=== PATIENT | female | born 1995 | race Caucasian/White ===

== ENCOUNTER → 2017-12-07 17:24 | Outpatient (CLI) | payer OTHER, SELFPAY ==
[2017-12-07 19:46] LABS: Chlamydia Trachomatis by PCR Negative (Negative); Neisserai gonorrhoeae by PCR Negative (Negative); Probe Check PASS; Sample Adequacy Control PASS; Specimen Processing Control PASS
== END ==
PROVIDERS: Family Provider Pediatrics; PCP Pediatrics; Visit Provider Nurse Practitioner Women's Health
DX: Z11.3 Encounter for screening for infections with a predominantly sexual mode of transmission (principal)
CPT/HCPCS: 87491; 87591

== ENCOUNTER → 2019-02-10 14:39 | Outpatient (CLI) | payer OTHER, SELFPAY ==
[2019-02-10 08:43] VITALS: BMI 25.7
[2019-02-10 16:45] LABS: Chlamydia Trachomatis by PCR POSITIVE (Negative); Neisserai gonorrhoeae by PCR Negative (Negative)
[2019-02-10 16:46] LABS: Probe Check PASS
[2019-02-16 09:38] LABS: HPV Reflexed? NOT INDICATED
== END ==
PROVIDERS: Family Provider Pediatrics; PCP Pediatrics; Referring Provider Nurse Practitioner Women's Health; Visit Provider Nurse Practitioner Women's Health
DX: Z12.4 Encounter for screening for malignant neoplasm of cervix (principal); Z11.3 Encounter for screening for infections with a predominantly sexual mode of transmission
CPT/HCPCS: 87491; 87591; 87624; 88175; G0145

== ENCOUNTER → 2020-02-21 17:07 | Outpatient (CLI) | payer OTHER, SELFPAY ==
[2020-02-21 10:43] VITALS: BMI 25.7
[2020-02-21 21:25] LABS: Chlamydia Trachomatis by PCR Negative (Negative); Neisserai gonorrhoeae by PCR Negative (Negative); Probe Check PASS; Sample Adequacy Control PASS; Specimen Processing Control PASS
== END ==
PROVIDERS: PCP Pediatrics; Referring Provider Nurse Practitioner Women's Health; Visit Provider Nurse Practitioner Women's Health
DX: Z11.3 Encounter for screening for infections with a predominantly sexual mode of transmission (principal)
CPT/HCPCS: 87491; 87591

== ENCOUNTER → 2021-02-28 | Outpatient (CLI) | payer OTHER, SELFPAY ==
[2021-02-28 08:49] VITALS: BMI 23.9
[2021-03-03 07:06] LABS: Chlamydia By Nucleic Acid AMP Negative (Negative)
[2021-03-03 07:40] LABS: Gonococcus By Nucleic Acid AMP Negative (Negative)
== END | disposition home or self-care (01) ==
LOC: LABSPEC 12:12
PROVIDERS: Visit Provider Nurse Practitioner Women's Health
DX: Z11.3 Encounter for screening for infections with a predominantly sexual mode of transmission (principal)
CPT/HCPCS: 87491; 87591

== ENCOUNTER → 2022-02-25 | Outpatient (CLI) | payer OTHER, SELFPAY ==
[2022-03-03 17:29] LABS: HPV Reflexed? NOT INDICATED
== END | disposition home or self-care (01) ==
LOC: LABSPEC 02-27 13:35
PROVIDERS: PCP Internal Medicine; Visit Provider Nurse Practitioner Women's Health
DX: Z12.4 Encounter for screening for malignant neoplasm of cervix (principal)
CPT/HCPCS: 88175; G0145

== ENCOUNTER → 2024-04-28 | Outpatient (CLI) | payer OTHER, SELFPAY ==
[2024-05-02 21:07] LABS: Chlamydia By Nucleic Acid AMP Negative (Negative); Gonococcus By Nucleic Acid AMP Negative (Negative)
== END | disposition home or self-care (01) ==
PROVIDERS: PCP Internal Medicine; Referring Provider Obstetrics & Gynecology; Visit Provider Obstetrics & Gynecology
DX: Z34.00 Encounter for supervision of normal first pregnancy, unspecified trimester (principal)
CPT/HCPCS: 87086; 87491; 87591

== ENCOUNTER → 2024-05-04 | Outpatient (CLI) | payer OTHER, SELFPAY ==
[2024-05-04 16:08] LABS: Absolute Lymphocyte Count 2.34 X10^3/uL (0.83-4.51); Absolute Neutrophil Count 4.3 X10^3/uL (2.0-7.7); Basophil# 0.02 X10^3/uL; Basophil% 0.3 % (0-1); Eosinophils% 2.8 % (0-5); Hematocrit 37.7 % (37-47); Hemoglobin 12.7 g/dL (12.0-15.0); Lymphocyte # 2.34 X10^3/ul (0.83-4.51); Lymphocyte % 32.5 % (19-41); Mean Corp Hgb Conc 33.7 g/dL (32-36); Mean Corpuscular Hgb 30.9 pg (27.0-32.0); Mean Corpuscular Volume 91.7 fL (81-99); Mean Platelet Vol. 11.6 fl (6.2-12.0); Monocyte# 0.32 X10^3/uL; Monocyte% 4.4 % (0-10); NRBC Flagged by Analyzer 0 % (0-5); Neutrophil % 59.7 % (47-70); Platelet Count 185 K/mm3 (150-450); Red Blood Count 4.11 M/mm3 (4.2-5.4); White Blood Count 7.2 K/mm3 (4.4-11.0)
[2024-05-04 17:55] LABS: HIV - WCH Non-Reactive (Nonreactive); Hepatitis B Surface Antigen Non-Reactive (Nonreactive); Hepatitis C Antibody Non-Reactive (Nonreactive); Rubella IgG Equiv (Nonreactive); Syphilis Antibodies Non-reactive
== END | disposition home or self-care (01) ==
LOC: WOBLAB 15:35
PROVIDERS: PCP Internal Medicine; Referring Provider Obstetrics & Gynecology; Visit Provider Obstetrics & Gynecology
DX: Z34.01 Encounter for supervision of normal first pregnancy, first trimester (principal); Z31.430 Encounter of female for testing for genetic disease carrier status for procreative management
CPT/HCPCS: 85025; 86703; 86762; 86780; 86803; 86850; 86900; 86901; 87340

== ENCOUNTER → 2024-08-15 | Outpatient (CLI) | payer OTHER, SELFPAY ==
[2024-08-15 16:35] LABS: Absolute Lymphocyte Count 2.34 X10^3/uL (0.83-4.51); Absolute Neutrophil Count 7.8 X10^3/uL (2.0-7.7); Basophil# 0.05 X10^3/uL; Basophil% 0.5 % (0-1); Eosinophils% 1.8 % (0-5); Hematocrit 36.3 % (37-47); Hemoglobin 11.9 g/dL (12.0-15.0); Lymphocyte # 2.34 X10^3/ul (0.83-4.51); Lymphocyte % 21.2 % (19-41); Mean Corp Hgb Conc 32.8 g/dL (32-36); Mean Corpuscular Hgb 31.8 pg (27.0-32.0); Mean Corpuscular Volume 97.1 fL (81-99); Mean Platelet Vol. 12.6 fl (6.2-12.0); Monocyte# 0.59 X10^3/uL; Monocyte% 5.3 % (0-10); NRBC Flagged by Analyzer 0 % (0-5); Neutrophil % 70.7 % (47-70); Platelet Count 174 K/mm3 (150-450); RBC Distribution Width CV 12.7 % (11.6-14.6); RBC Distribution Width SD 44.8 fl (35.1-43.9); Red Blood Count 3.74 M/mm3 (4.2-5.4)
[2024-08-15 16:45] LABS: Glucose Challenge Gest 1H 50g 101 mg/dL (70-140)
[2024-08-15 17:21] LABS: HIV - WCH Non-Reactive (Nonreactive); Syphilis Antibodies Non-reactive
== END | disposition home or self-care (01) ==
LOC: BWCLAB 15:03
PROVIDERS: PCP Internal Medicine; Referring Provider Advanced Practice Midwife; Visit Provider Advanced Practice Midwife
DX: Z34.02 Encounter for supervision of normal first pregnancy, second trimester (principal)
CPT/HCPCS: 36415; 82950; 85025; 86703; 86780

== ENCOUNTER → 2024-10-28 | Outpatient (CLI) | payer OTHER, SELFPAY | END | disposition home or self-care (01) | LOC: LABSPEC 16:09 | PROVIDERS: PCP Internal Medicine; Referring Provider Advanced Practice Midwife; Visit Provider Advanced Practice Midwife | DX: Z34.02 Encounter for supervision of normal first pregnancy, second trimester (principal) | CPT/HCPCS: 87081 ==

== ENCOUNTER 2024-11-26 09:56 | Inpatient (IN) | payer OTHER, SELFPAY ==
[2024-11-26] VITALS (19 sets, daily range): BP systolic 103–165; BP diastolic 57–140; PULSE 73–171; RESP 13–20; TEMP 36.2–37.2; O2SAT 81–100; BMI 29.7
--- NOTE | 2024-11-26 10:45 | HP.PCM.OB_ITS ---
HPI - General General Date of Admission: 11/26/24 Date of Service: 11/26/24 HPI Narrative KAI MERCHANT, is a 29 F 40.4 weeks who presents for uterine contractions. occasional variable noted. decision made for induction Maternal Data Information LYNDA Calculator Estimated Delivery Date Method Current WG Current Estimate 11/22/24 LMP (Certain) 40w 4d Other Estimates 11/29/24 Ultrasound #1 39w 4d Final LYNDA: 11/22/24 Final LYNDA Source: US >20 weeks Gestational age: 40.4 PFSH PFSH Medical History Seasonal allergies Genital warts History of chlamydia Home Medications ?Medication ?Instructions ?Recorded ?Last Taken ?Type lactobacillus combination no.4 3 3,000 mmu cells PO DA NUPUR 03/04/24 11/25/24 His tory billion cell capsule (Probiotic) multivit-min no.71-iron fum 28 1 cap PO DAILY Pregnanc y 04/22/24 11/25/24 History mg-folate no.1 1 mg-dha 300 mg capsule (PNV-[place]) Allergy/AdvReac Type Severity Reaction Status Date / Time No Known Allergies Allergy Verified 11/22/24 15:12 Family History Grandmother Breast cancer, Onset Age: 70 Maternal Great Grandmother Surgical History [place] teeth extracted Social History adopted: No household members: spouse current occupational status: employed current occupation: [employer] current occupational exposures/hazards: No pets and animals: Yes pets and animals: dog(s) history of recent travel: Yes ( -December) out of country: Yes sexually active: Yes Smoking Status: Never smoker alcohol intake: current alcohol intake frequency: holidays/special occasions only details: Not while substance use type: does not use well-balanced diet: daily or most days caffeine: No eating out: rarely or never during the past year weight has: remained stable what type of physical activity do you participate in: other details: crossfit frequency: 3-4 times per week duration: 45-60 minutes/day july/buddhism: [employer] seatbelt use: always do you feel safe at home: Yes additional social history: - Khushi Merchant [employer] [place] Financial History 1 Elective abortions Hx Para 0 Spontaneous abortions Hx # Term Pregnancies Ectopic pregnancies Hx # Pregnancies Multiple births # of living children 0 Visit Details Expected Delivery Route/Plan 7svd Labor Preferences- CB/BF classes: encouraged labor support person: Khushi labor intervention preferences: [] pain management options preferred: Limited intervention if possible cut cord/dad catch: cord : yes PP control planned: disccussed discussed possible routes of delivery and associated risks: [] special requests: [] Plans Covid status: [] Flu vaccine: declines Tdap vaccine: [] Rhogam: NA LARC form signed: yes Problem list reviewed and updated with the most current plan of care details and appropriate orders placed. Relevant counseling for the gestational age provided. Continue routine care and follow up unless otherwise noted in visit notes/problem list details OB Flowsheet Initial Weight: Not Recorded Date -?-?-?-?-?-?-?-?-?-?-?-?- EGA Weight BP Urine Prot -?-?-?-?-?-?-?-?-?-?-?-?- Glucose FHR FuHt Pres Dilation -?-?-?-?-?-?-?-?-?-?-?-?- Effaced St Visit Note 05/26/24 -?-?-?-?-?-?-?-?-?-?-?-?- 14w 2d 139 lb 117/80 -?-?-?-?-?-?-?-?-?-?-?-?- 150 -?-?-?-?-?-?-?-?-?-?-?-?- SM- no vb crmapi ng 06/21/24 -?-?-?-?-?-?-?-?-?-?-?-?- 18w 0d 146 lb 4 oz 106/72 Nega tive -?-?-?-?-?-?-?-?-?-?-?-?- Negative 152 -?-?-?-?-?-?-?-?-?-?-?-?- MH-No VB, LOF. N o flutters yet. Denies concerns. anatomy US next week 07/18/24 -?-?-?-?-?-?-?-?-?-?-?-?- 21w 6d 153 lb 106/78 Negative -?-?-?-?-?-?-?-?-?-?-?-?- Negative 140 22 -?-?-?-?-?-?-?-?-?-?-?-?- KW- no vb/crampi ng. good fm. anatomy nl. 08/15/24 -?-?-?-?-?-?-?-?-?-?-?-?- 25w 6d 157 lb 2 oz 116/78 Nega tive -?-?--?-?-?-?-?-?-?-?-?-?- Negative 146 26 -?-?-?-?-?-?-?-?-?-?-?-?- MH-No vB, LOF. G ood FM. Larc. 28 wk labs pending. 09/12/24 -?-?-?-?-?-?-?-?-?-?-?-?- 29w 6d 161 lb 119/77 Negative -?-?-?-?-?-?-?-?-?-?-?-?- Negative 135 30 -?-?-?-?-?-?-?-?-?-?-?-?- KW-no vb/lof/ctx good fm. edu classes scheduled. KW-no vb/lof/ctx good fm. ed u classes scheduled. declines tdap. 09/27/24 -?-?-?-?-?-?-?-?-?-?-?-?- 32w 0d 162 lb 8 oz 109/76 Nega tive -?-?-?-?-?-?-?-?-?-?-?-?- Negative 142 32 -?-?-?-?-?-?-?-?-?-?-?-?- JV- no lof, vagi nal bleeding, or dec fm. no complaints. 10/14/24 -?-?-?-?-?-?-?-?-?-?-?-?- 34w 3d 166 lb 108/76 Negative -?-?-?-?-?-?-?-?-?-?-?-?- Negative 140 34 -?-?-?-?-?-?-?-?-?-?-?-?- KW-work in for L C, no vb/lof/ctx. good fm. GBS next visit. 10/28/24 -?-?-?-?-?-?-?-?-?-?-?-?- 36w 3d 168 lb 2 oz 115/74 Nega tive -?-?-?-?-?-?-?-?-?-?-?-?- Negative 130 36 Cephalic 0 -?-?-?-?-?-?-?-?-?-?-?-?- KW- no vb/lof/ct x. good fm GBS today. reviewed plan. KW- no vb/lof/ctx. good fm G BS today. reviewed plan. handout given on hand expression 11/04/24 -?-?-?-?-?-?-?-?-?-?-?-?- 37w 3d 170 lb 2 oz 118/78 Nega tive -?-?-?-?-?-?-?-?-?-?-?-?- Negative 132 36.5 Cephalic 0 -?-?-?-?-?-?-?-?-?-?-?-?- JV- no lof, vagi nal bleeding or dec fm. labor precautions discussed. 11/11/24 -?-?-?-?-?-?-?-?-?-?-?-?- 38w 3d 172 lb 2 oz 115/79 Nega tive -?--?-?-?-?-?-?-?-?-?-?-?- Negative 145 37 Cephalic 1 -?-?-?-?-?-?-?-?-?-?-?-?- SM- no vb lof go od fm no regular ctx 11/18/24 -?-?-?-?-?-?-?-?-?-?-?-?- 39w 3d 171 lb 114/83 Negative -?-?-?-?-?-?-?-?-?-?-?-?- Negative 140 38 Cephalic 0 .5 -?-?-?-?-?-?-?-?-?-?-?-?- 40 -3 LC- no vb/ ctx/lof. good fm. 11/22/24 -?-?-?-?-?-?-?-?-?-?-?-?- 40w 0d 173 lb 124/68 Negative -?-?-?-?-?-?-?-?-?-?-?-?- Negative 140 40 Cephalic 1 -?-?-?-?-?-?-?-?-?--?-?-?- 50 -2 KW- no vb/ lof/ctx. good fm. IOL set up for 41 weeks. NST FHR Rate Baby A Baseline: 135 Variability:: Moderate Accelerations:: 15 x 15 Decelerations:: Variable NST Reactive:: Yes FHR Category:: Category I Uterine Activity:: 6-8 ROS Constitutional Constitutional: Denies change in weight, fatigue, fever(s), headache(s), poor appetite or weakness Eyes Eyes: Denies blurry vision, change in vision, floaters, seeing flashes or spots in vision ENT HEENT: Denies dizziness, headache(s), loss taste/smell or sore throat Cardiovascular Cardiovascular: Denies chest pain, dizziness, dyspnea, irregular heart rhythm, lightheadedness, palpitations or rapid heart rate Respiratory/Chest Respiratory/Chest: Denies change in mental status, chest tightness, cough, dyspnea or breast pain Gastrointestinal Gastrointestinal: Denies anorexia, chewing difficulty, constipation, diarrhea or weight changes Genitourinary Genitourinary: Denies difficulty urinating, dysuria, flank pain, genital pain, urinary frequency or urinary urgency Musculoskeletal Musculoskeletal: Denies back pain, difficulty walking, extremity pain, joint pain, muscle cramps or muscle weakness Integumentary Integumentary: Denies lesions or unusual bruising Neurologic Neurologic: Denies abnormal movements, abnormal speech, dizziness, numbness, seizure-like activity, syncope or weakness Psychiatric Psychiatric: Denies behavioral changes, change in appetite, confusion, depression, homicidal ideation, suicidal ideation or suicidal thoughts Endocrine Endocrinology: Denies excessive sweating, polydipsia or polyuria Hematologic/Lymphatic Hematologic/Lymphatic: Denies anemia Allergic/Immunologic Allergic/Immunologic: Denies itchy eyes, lip swelling, throat swelling, tongue swelling or wheezing Vital Signs Vital Signs Vital Signs: 11/26/24 07:43 11/26/24 07:43 11/26/24 07:43 Temperature Temperature Source Temporal Pulse Rate 94 Respiratory Rate 16 Blood Pressure BP Systolic BP Diastolic Pulse Ox 11/26/24 07:43 11/26/24 07:43 11/26/24 07:44 Temperature 99.0 F Temperature Source Pulse Rate Respiratory Rate Blood Pressure 115/86 H BP Systolic 115 BP Diastolic 86 Pulse Ox 98 11/26/24 07:44 Temperature Temperature Source Pulse Rate 96 Respiratory Rate Blood Pressure BP Systolic BP Diastolic Pulse Ox Weight Weight: 173 lb 6.4 oz Body Mass Index (BMI) 29.7 Physical Exam Const alert, oriented x3 and no apparent distress General Appearance: cooperative Orientation / Consciousness: awake HEENT normocephalic Neck full ROM Lymph Lymphatic: no lymphadenopathy noted Chest inspection of chest normal Resp normal respiratory effort and normal air movement Effort and Inspection: able to speak in complete sentences and symmetric chest movement GI soft to palpation and non-tender Inspection: gravid Palpation: soft; Negative for tender external exam normal Back/Spine normal to inspection Extremity normal to inspection and full ROM Skin no rashes or lesions noted Psych mental status grossly normal Appearance: grossly normal Speech: normal speech Labs Labs Labs: Blood Type O POSITIVE Antibody Screen NEGATIVE Hct 36.3 % (37-47) L Hgb 11.9 g/dL (12.0-15.0) L Syphilis Total Ab Non-reactive Rubella IgG Antibody Equiv (Nonreactive) Hep Bs Antigen Non-Reactive (Nonreactive) Hepatitis C Antibody Non-Reactive (Nonreactive) Chlamydia DNA ([facility]) Negative (Negative) N.gonorrhoeae DNA ([facility]) Negative (Negative) HIV 1&2 Antibody Non-Reactive (Nonreactive) Glucose 1 Hr 50 gm 101 mg/dL (70-140) Assessment & Plan (1) Encounter for induction of labor: PLAN: Patient presents IOL, plan management for with zimmer/pitocin/AROM. Pain management: plans epidural. GBS negative. Management of any complications: see list I have reviewed the [facility] and made any clinically relevant updates. Dr Goff aware of assessment and plan. agrees with admission (2) Rubella non-immune status, antepartum: COMMENT: equivocal. offer MMR vaccine pp. (3) Supervision of normal first : QUALIFIERS: Trimester: second trimester Qualified Code(s): Z34.02 - Encounter for supervision of normal first , second trimester COMMENT: PRR , LYNDA 11/22/24, boy Trace Khushi. Normal anatomy, consistent dates. (4) : QUALIFIERS: Weeks of gestation: 40 weeks Qualified Code(s): Z3A.40 - 40 weeks gestation of COMMENT: GBS neg, NIPT low risk, carrier neg. , declined ntd screen. nl anatomy Charges/Coding Multi Select Codes Urinary/Genital Urinary/Genital CPT Codes: No Charge
[2024-11-26 10:46] LABS: Absolute Lymphocyte Count 2.08 X10^3/uL (0.83-4.51); Absolute Neutrophil Count 8.3 X10^3/uL (2.0-7.7); Basophil# 0.02 X10^3/uL; Basophil% 0.2 % (0-1); Eosinophil# 0.05 X10^3/uL; Eosinophils% 0.5 % (0-5); Hematocrit 35.6 % (37-47); Lymphocyte # 2.08 X10^3/ul (0.83-4.51); Mean Corp Hgb Conc 33.7 g/dL (32-36); Mean Corpuscular Hgb 31.4 pg (27.0-32.0); Mean Corpuscular Volume 93.2 fL (81-99); Mean Platelet Vol. 13.4 fl (6.2-12.0); Monocyte% 4.6 % (0-10); NRBC Flagged by Analyzer 0 % (0-5); Neutrophil # 8.25 X10^3/uL (2.7-7.7); Neutrophil % 75.2 % (47-70); Platelet Count 146 K/mm3 (150-450); RBC Distribution Width CV 13.9 % (11.6-14.6); RBC Distribution Width SD 47.4 fl (35.1-43.9); Red Blood Count 3.82 M/mm3 (4.2-5.4)
[2024-11-26] MEDS: 0.9% Saline Lock 10 ML Syringe IV ×2 (11:04→15:38)
[2024-11-26] MEDS: Lactated Ringers 1,000 ML 50 ML IV (11:05)
[2024-11-26] MEDS: Oxytocin 15 Units/NS 250ml 15 UNITS/250 ML IV.SOLN 2 UNITS IV (11:38)
[2024-11-26 11:50] LABS: Syphilis Antibodies Nonreactive (Nonreactive)
[2024-11-26] MEDS: Ondansetron 4 MG/2 ML Vial IV (15:37)
--- NOTE | 2024-11-26 17:53 | PCM.PN.BLA ---
Progress Note Coping well with contractions current tracing: FHT: 140 Moderate variability reactive no decelerations category I tracing [place]: 2-3 minutes Contractions Membranes:AROM clear SVE:6/80/-1 pitocin at 2mu A/P: Continue with position changes Titrate pitocin per protocol Epidural per anesthesia GBS neg Anticipate Dr Goff aware of above assessment and agrees with plan of care Assessment & Plan Assessment/Plan (1) Encounter for induction of labor: (2) Rubella non-immune status, antepartum: (3) Supervision of normal first : QUALIFIERS: Trimester: second trimester Qualified Code(s): Z34.02 - Encounter for supervision of normal first , second trimester (4) : QUALIFIERS: Weeks of gestation: 40 weeks Qualified Code(s): Z3A.40 - 40 weeks gestation of Multi Select Codes Urinary/Genital Urinary/Genital CPT Codes: No Charge
--- NOTE | 2024-11-26 19:09 | PCM.PN.BLA ---
Progress Note Coping well with contractions current tracing: FHT: 140 Moderate variability reactive prolonged deceleration, FSE applied and Dr Goff called for FHT in 60s for 3 minutes. TRENT called. category II tracing [place]: 2-3 minute Contractions Membranes:remains clear SVE:/-1 reviewed tracing abnormalities since last note: collaboration with Dr Goff at this time for above. A/P: Continue with position changes Titrate pitocin per protocol Epidural per anesthesia GBS neg Anticipate Dr Goff aware of above assessment and agrees with plan of care Assessment & Plan Assessment/Plan (1) Encounter for induction of labor: (2) Rubella non-immune status, antepartum: (3) Supervision of normal first : QUALIFIERS: Trimester: second trimester Qualified Code(s): Z34.02 - Encounter for supervision of normal first , second trimester (4) : QUALIFIERS: Weeks of gestation: 40 weeks Qualified Code(s): Z3A.40 - 40 weeks gestation of Multi Select Codes Urinary/Genital Urinary/Genital CPT Codes: No Charge
[2024-11-26] MEDS: Cefazolin 2 GM in 0.9% Normal Saline (100mL Bag) 100 ML IV (20:00)
[2024-11-26] MEDS: Azithromycin 500 MG in 0.9% Normal Saline (250mL Bag) 250 ML 255 MG IV (20:40)
--- NOTE | 2024-11-26 20:58 | EX.PCM.OBRPT ---
Assessment & Plan (1) delivery delivered: COMMENT: SM/KW LTCS cat II tracing boy trace 40 (2) : QUALIFIERS: Weeks of gestation: 40 weeks Qualified Code(s): Z3A.40 - 40 weeks gestation of COMMENT: GBS neg, NIPT low risk, carrier neg. , declined ntd screen. nl anatomy (3) Supervision of normal first : QUALIFIERS: Trimester: second trimester Qualified Code(s): Z34.02 - Encounter for supervision of normal first , second trimester COMMENT: PRR , LYNDA 11/22/24, boy Trace Khushi. Normal anatomy, consistent dates. (4) Rubella non-immune status, antepartum: COMMENT: equivocal. offer MMR vaccine pp. Maternal Data Information LYNDA Calculator Estimated Delivery Date Method Current WG Current Estimate 11/22/24 LMP (Certain) 40w 4d Other Estimates 11/29/24 Ultrasound #1 39w 4d Final LYNDA Source: LMP Operative Report (OB) Details Procedure Type: low transverse Date of Procedure: 11/26/24 Procedure Start Time: 18:51 Procedure Stop Time: 20:39 Pre-Operative Diagnosis: Other Other Pre-Operative diagnosis: see a/p comments Post-Operative Diagnosis: Same as Pre-operative diagnosis Classification: LUCAS Type of Anesthesia: Spinal Special Medications: none Antibiotic Given: Ancef 2 grams IV x1 Drain: Cleary to straight drain Estimated Blood Loss: 900 Fluids Replaced: crystalloid Findings Description of surgery: patient developed a bradycardia into the 60s which recovered into the 110s with a baselin change with moderate variability but had early decels, decision was made to place an epidural, patient was 6 cm. after epidural, patient had recurrent late and variable decels, was still 6 cm and OP presentation, it was discussed and decided ot proceed with primary . The patient was placed in the dorsal supine position with leftward tilt. Patient was prepped and draped in the normal sterile fashion. Pfannenstiel skin incision was made with the scalpel and carried through to the underlying layer of fascia with the scalpel. Fascia was nicked in the midline and the incision extended laterally. The rectus bellies were dissected off superiorly and inferiorly with out complication both sharply and bluntly. The peritoneum was entered digitally. The incision was stretched and a low transverse uterine incision was made with the scalpel. The 's head was delivered atraumatically followed by the anterior and posterior shoulders without complication the rest of the delivered. The cord was clamped and cut and the infant was handed off to awaiting nurse. The placenta was delivered spontaneously immediately following and was noted to be intact and have a three-vessel cord. The uterus was exteriorized cleared of all clots and debris, and the incision was closed in a single layer closure using #1 Monocryl. The ovaries and fallopian tubes were noted to be within normal limits. The uterus was returned to the maternal abdomen and gutters were cleared of all clots and debris. The peritoneum was closed with 3-0 Monocryl in a running fashion. Gloves were changed prior to fascial closure. Fascia was closed with 0 PDS in a running fashion. Subcutaneous tissue was copiously irrigated and the skin was closed with 3-0 Monocryl in a subcuticular fashion. Mepilex dressing was applied without complication. Patient was taken to recovery in stable condition. It was discussed with the patient that based on the clinical information obtained during this encounter, combined with her history, at this time I would recommend vaginal or for future deliveries if further pregnancies are desired. Surgical findings: nl uterus tubes ovaries Presentation: Vertex Amniotic Membrane Rupture Type: Artificial Amniotic Fluid Description: Clear Specimen collected: Yes Description of specimen(s) removed: placenta and baby Cord Vessel Description: 3 Vessels Delayed Cord Clamping: Yes Visual Presentation Manager advertising operations manager: Yes Script Editor: lincoln womack Tasks completed by patient care nursing assistant: Opening & closing, Retracting and Other (assisting in delivery of the ) Additional computer assistant?: No Complications Complications: No Admit VTE Documentation VTE Present on Admission: No VTE Mechan Device Prophylaxis: SCD's Procedures Urinary/Genital 52xxx-59xxx: 96833 Delivery [facility]
--- NOTE | 2024-11-26 21:00 | PN.SURG_ITS ---
Subjective Subjective I was present and assisted Dr Goff from the start of the procedure to the end. I performed retraction, suture cutting, suction, and fundal pressure assistance during the procedure. See Dr Goff's operative note for full details of the procedure. Objective Data Objective Data Vital Signs: Vital Signs Temp Pulse Resp BP Pulse Ox O2 Del Method 97.6 F L 82 16 99/61 98 Room Air 11/26/24 20:55 11/27/24 07:46 11/27/24 07:46 11/27/24 07:46 11/27/24 07:46 11/27/24 07:46 Oxygen Delivery Method Room Air Weight: 173 lb 6.4 oz Body Mass Index (BMI) 29.7 Intake & Output: Intake and Output for Last 24 Hours 11/25/24 11/26/24 11/27/24 23:59 23:59 23:59 Intake Total 823.90 / 823.90 711.67 / 711.67 Output Total 1050 / 1050 1550 / 1550 Balance -226.10 / -226.10 -838.33 / -838.33 Lab / Micro Data 11/26/24 10:35 Labs: Laboratory Results - last 24 hr 11/26/24 10:35: WBC 11.0, RBC 3.82 L, Hgb 12.0, Hct 35.6 L, MCV 93.2, MCH 31.4, MCHC 33.7, RDW Std Deviation 47.4 H, RDW Coeff of Shivani 13.9, Plt Count 146 L, MPV 13.4 H, Immature Gran % (Auto) 0.500, Neut % (Auto) 75.2 H, Lymph % (Auto) 19.0, Antelope % (Auto) 4.6, Eos % (Auto) 0.5, Baso % (Auto) 0.2, Absolute Neuts (auto) 8.3 H, Absolute Lymphs (auto) 2.08, Nucleated RBC % 0, Syphilis Total Ab Nonreactive, Blood Type O POSITIVE, Antibody Screen NEGATIVE Assessment & Plan Assessment/Plan (1) delivery delivered: (2) Encounter for induction of labor: (3) Rubella non-immune status, antepartum: (4) Supervision of normal first : QUALIFIERS: Trimester: second trimester Qualified Code(s): Z34.02 - Encounter for supervision of normal first , second trimester (5) : QUALIFIERS: Weeks of gestation: 40 weeks Qualified Code(s): Z 3A.40 - 40 weeks gestation of Charges/Coding Multi Select Codes Urinary/Genital Urinary/Genital CPT Codes: 42860 Delivery [facility] (alert billing)
--- NOTE | 2024-11-26 21:02 | DCINST_ITS ---
Discharge Instructions Diet Discharge Diet: No restrictions DC O2, CPAP, BIPAP needs Home O2 Discharge instructions: No Dressing / Incision Discharge Activity: May Not Drive (for 2 weeks or while taking narcotic pain medications.), May Shower and May Take a Tub Bath (in 7 days) May shower in (days): 0 May resume sexual activity in: 4-6 weeks Weight Bearing Status: Full weight bearing Lifting Restrictions: 20 pounds Dressing / Incision Call your doctor if your incision/area has: Continuous Slow Oozing, Sudden Increased Bleeding, Increased Pain/ Swelling, Increased Redness and Foul Smelling Discharge Call your doctor if you observe: Fever of 101 or Higher and Using more than 1 pad per hour (for 2 hours) Suture Line Care: Avoid Pulling/Pushing and Avoid Pinching/Bending Cleanse incision/area with: Soap & Water and Keep Dressing Clean & Dry Follow Up Care Please Follow Up With: Kalli Goff MD When: Call [phone] to make an appointment for an incision check in 1-2 weeks. Test Results: Test results from this visit will be discussed in further detail at your follow- up appointment, if applicable. Discharge Plan Admission Admit Date/Time: 11/26/24 09:56 Attending Provider: Kalli Goff Primary Care Provider: Ghazal Moran Discharge Orders/Prescriptions Prescriptions: New oxycodone-acetaminophen [Percocet] 5-325 mg tablet 1 tab PO Q4H PRN (Reason: pain) 7 Days Qty: 20 0RF naproxen 500 mg tablet 500 mg PO BID PRN PRN (Reason: Pain) Qty: 30 1RF No Action Probiotic 3 billion cell capsule 3,000 mmu cells PO DAILY Rx Instructions: administer with a meal PNV-[place] 28-1-300 mg capsule 1 cap PO DAILY Referrals / Follow Up: Ghazal Moran DO [Primary Care Provider] - Disposition Disposition (needs filled in before D/C Order can be placed): Home, Self Care
[2024-11-26] MEDS: Oxytocin 15 Units/NS 250ml 15 UNITS/250 ML IV.SOLN 83 UNITS IV (21:10)
[2024-11-26] MEDS: Ketorolac 30 MG/ML Syringe IV (22:35)
[2024-11-27] VITALS (11 sets, daily range): BP systolic 99–113; BP diastolic 59–81; PULSE 76–93; RESP 15–16; TEMP 36.4–36.6; O2SAT 95–99
[2024-11-27] MEDS: Lactated Ringers 1,000 ML 100 ML IV (01:35)
[2024-11-27] MEDS: Acetaminophen 500 MG Tablet 1000 MG PO ×4 (01:41→20:18)
[2024-11-27] MEDS: Ketorolac 30 MG/ML Syringe IV ×3 (04:57→16:03)
[2024-11-27 08:07] LABS: Hematocrit 28.9 % (37-47); Mean Corp Hgb Conc 34.6 g/dL (32-36); Mean Corpuscular Hgb 31.4 pg (27.0-32.0); Mean Corpuscular Volume 90.9 fL (81-99); Mean Platelet Vol. 13.4 fl (6.2-12.0); Platelet Count 147 K/mm3 (150-450); RBC Distribution Width CV 13.8 % (11.6-14.6); RBC Distribution Width SD 45.5 fl (35.1-43.9); Red Blood Count 3.18 M/mm3 (4.2-5.4); White Blood Count 15.9 K/mm3 (4.4-11.0)
--- NOTE | 2024-11-27 08:17 | PN.OBGYN_ITS ---
Subjective Subjective Patient doing well without complaints. Tolerating PO. Ambulating and voiding without difficulty. Feeding well. Denies chest pain, shortness of breath, calf pain/swelling, fevers, chills, lightheadedness. Objective Data Objective Data Vital Signs: Vital Signs Temp Pulse Resp BP Pulse Ox O2 Del Method 97.6 F L 82 16 99/61 98 Room Air 11/26/24 20:55 11/27/24 07:46 11/27/24 07:46 11/27/24 07:46 11/27/24 07:46 11/27/24 07:46 Oxygen Delivery Method Room Air Weight: 173 lb 6.4 oz Body Mass Index (BMI) 29.7 Intake & Output: Intake and Output for Last 24 Hours 11/25/24 11/26/24 11/27/24 23:59 23:59 23:59 Intake Total 823.90 / 823.90 711.67 / 711.67 Output Total 1050 / 1050 1550 / 1550 Balance -226.10 / -226.10 -838.33 / -838.33 Lab / Micro Data Attestation: I reviewed the patient's lab results. 11/27/24 07:35 Labs: Laboratory Results - last 24 hr 11/26/24 10:35: WBC 11.0, RBC 3.82 L, Hgb 12.0, Hct 35.6 L, MCV 93.2, MCH 31.4, MCHC 33.7, RDW Std Deviation 47.4 H, RDW Coeff of Shivani 13.9, Plt Count 146 L, MPV 13.4 H, Immature Gran % (Auto) 0.500, Neut % (Auto) 75.2 H, Lymph % (Auto) 19.0, [place] % (Auto) 4.6, Eos % (Auto) 0.5, Baso % (Auto) 0.2, Absolute Neuts (auto) 8.3 H, Absolute Lymphs (auto) 2.08, Nucleated RBC % 0, Syphilis Total Ab Nonreactive, Blood Type O POSITIVE, Antibody Screen NEGATIVE 11/27/24 07:35: WBC 15.9 H, RBC 3.18 L, Hgb 10.0 L, Hct 28.9 L, MCV 90.9, MCH 31.4, MCHC 34.6, RDW Std Deviation 45.5 H, RDW Coeff of Shivani 13.8, Plt Count 147 L, MPV 13.4 H ROS Constitutional Constitutional: Reports systems reviewed and no addt'l complaints, except as documented; Denies anorexia or headache(s) Cardiovascular Cardiovascular: Reports systems reviewed and no addt'l complaints, except as documented; Denies dizziness, dyspnea, nausea or tachypnea Respiratory/Chest Respiratory/Chest: Reports systems reviewed and no addt'l complaints, except as documented; Denies cough, dyspnea, shortness of breath at rest or tachypnea Gastrointestinal Gastrointestinal: Reports systems reviewed and no addt'l complaints, except as documented; Denies abdominal pain, constipation or nausea Genitourinary Genitourinary: Reports systems reviewed and no addt'l complaints, except as documented; Denies burning urination, difficulty urinating, dysuria, urinary frequency or urinary incontinence Musculoskeletal Musculoskeletal: Reports systems reviewed and no addt'l complaints, except as documented Integumentary Integumentary: Reports systems reviewed and no addt'l complaints, except as documented Neurologic Neurologic: Reports systems reviewed and no addt'l complaints, except as documented; Denies abnormal speech, dizziness or headache(s) Psychiatric Psychiatric: Reports systems reviewed and no addt'l complaints, except as documented Endocrine Endocrinology: Reports systems reviewed and no addt'l complaints, except as documented Hematologic/Lymphatic Hematologic/Lymphatic: Reports systems reviewed and no addt'l complaints, except as documented Physical Exam Const alert, oriented x3 and no apparent distress Neck full ROM Resp normal respiratory effort, normal air movement and no retractions Effort and Inspection: able to speak in complete sentences and symmetric chest movement GI soft to palpation Bladder / Kidney Exam: bladder normal to palpation Uterus Palpation: uterus fundus firm Extremity normal to inspection and full ROM Psych mental status grossly normal, thought process normal and cooperative Assessment & Plan (1) delivery delivered: COMMENT: SM/KW LT cat II tracing boy trace 40 PLAN: s/p LT PPD # 1 1. routine post care 2. breast feeding- support given 3. rh positive 4. rubella immune (2) Encounter for induction of labor: (3) Rubella non-immune status, antepartum: COMMENT: equivocal. offer MMR vaccine pp. (4) Supervision of normal first : QUALIFIERS: Trimester: second trimester Qualified Code(s): Z34.02 - Encounter for supervision of normal first , second trimester COMMENT: PRR , LYNDA 11/22/24, boy Trace Khushi. Normal anatomy, consistent dates. (5) : QUALIFIERS: Weeks of gestation: 40 weeks Qualified Code(s): Z 3A.40 - 40 weeks gestation of COMMENT: GBS neg, NIPT low risk, carrier neg. , declined ntd screen. nl anatomy Charges/Coding Multi Select Codes Urinary/Genital Urinary/Genital CPT Codes: No Charge
[2024-11-27] MEDS: Senna/Docusate Sodium 1 Tablet PO (09:54)
[2024-11-27] MEDS: 0.9% Saline Lock 10 ML Syringe IV ×2 (09:54→16:03)
[2024-11-27] MEDS: Naproxen 500 MG Tablet PO (21:19)
[2024-11-28] MEDS: Acetaminophen 500 MG Tablet 1000 MG PO ×2 (02:23→09:26)
[2024-11-28 02:27] VITALS: BP 106/66; PULSE 84; RESP 16; TEMP 36.4; O2SAT 98
[2024-11-28] MEDS: Naproxen 500 MG Tablet PO ×2 (05:46→13:58)
--- NOTE | 2024-11-28 08:05 | DS.PCM_ITS ---
Providers Date of Admission: 11/26/24 Primary Care Physician: Dr. Ghazal Moran DO Reason For Visit: C SECTION Diagnosis Discharge Diagnosis (1) delivery delivered: Status: Acute Code(s): O82 - Encounter for delivery without indication (2) Encounter for induction of labor: Status: Acute Code(s): Z34.90 - Encounter for supervision of normal , unspecified, unspecified trimester (3) Rubella non-immune status, antepartum: Status: Acute Code(s): O09.899 - Supervision of other high risk pregnancies, unspecified trimester; Z28.39 - Other underimmunization status (4) Supervision of normal first : Status: Acute Code(s): Z34.00 - Encounter for supervision of normal first , unspecified trimester Qualifiers: Trimester: second trimester Qualified Code(s): Z34.02 - Encounter for supervision of normal first , second trimester (5) : Status: Acute Code(s): Z34.90 - Encounter for supervision of normal , unspecified, unspecified trimester Qualifiers: Weeks of gestation: 40 weeks Qualified Code(s): Z3A.40 - 40 weeks gestation of Medications at Discharge Home Medications lactobacillus combination no.4 3 billion cell capsule (Probiotic) 3,000 mmu cells PO DAILY 03/04/24 multivit-min no.71-iron fum 28 mg-folate no.1 1 mg-dha 300 mg capsule (PNV- [place]) 1 cap PO DAILY 04/22/24 naproxen 500 mg tablet 500 mg PO BID PRN PRN Pain #30 tabs 11/26/24 oxycodone-acetaminophen 5 mg-325 mg tablet (Percocet) 1 tab PO Q4H PRN pain 7 days #20 tabs 11/26/24 Hospital Course Operations section Summary of Care Provided Minutes Spent on Discharge: 30 Hospital Course: The patient was admitted for labor and underwent a primary section on 11/26/24 due to non-reassuring heart rate tracing with Dr. Goff. There were no complications. On day #1 she was tolerating pain well and ambulating, on day #2 she was ready for discharge. Physical Exam HEENT normocephalic Resp normal respiratory effort and normal air movement GI soft to palpation, non-tender and non-distended Rectal Exam: other Other Details: Incision is clean, dry, and intact no CVA tenderness Extremity normal to inspection General Extremity: edema bilateral (trace ) Weight / BMI Weight Weight: 173 lb 6.4 oz Body Mass Index (BMI) 29.7 ABG / Lab / Microbiology Data 11/27/24 07:35 Laboratory: Laboratory Results - last 24 hr 11/27/24 07:35: WBC 15.9 H, RBC 3.18 L, Hgb 10.0 L, Hct 28.9 L, MCV 90.9, MCH 31.4, MCHC 34.6, RDW Std Deviation 45.5 H, RDW Coeff of Shivani 13.8, Plt Count 147 L, MPV 13.4 H D/C Instructions Discharge Diet: No restrictions May shower in (days): 0 May resume sexual activity in: 4-6 weeks Weight Bearing Status: Full weight bearing Call your doctor if your incision/area has: Continuous Slow Oozing, Sudden Increased Bleeding, Increased Pain/ Swelling, Increased Redness and Foul Smelling Discharge Call your doctor if you observe: Fever of 101 or Higher and Using more than 1 pad per hour (for 2 hours) Suture Line Care: Avoid Pulling/Pushing and Avoid Pinching/Bending Cleanse incision/area with: Soap & Water and Keep Dressing Clean & Dry DC O2, CPAP, BIPAP Needs Home O2 Discharge instructions: No Please Follow Up With: Kalli Goff MD When: Call [phone] to make an appointment for an incision check in 1-2 weeks. Meaningful Use Info Meaningful Use Meaningful Use Diagnoses (Choose all that apply): None applicable Ischemic Stroke Statin Dosing Therapy Reference: STATIN DOSE THERAPY REFERENCE: * Patients > 75 years receive moderate or high dose statin therapy. * Patients 75 years or YOUNGER should receive HIGH intensity statin dose unless contraindicated. You will be required to document reason for non-treatment if statin daily dose does not meet guidelines. HIGH DOSE STATIN THERAPY DAILY Atorvastatin > than or = to 40 mg Rosuvastatin > than or = to 20 mg Amlodipine + Atorvastatin > than or = to 2.5/40 mg Ezetimibe + Simvastatin 10/80 mg Simvastatin 80mg Discharge Plan Admission Admit Date/Time: 11/26/24 09:56 Primary Reason for Your Visit: section Attending Provider: Kalli Goff Primary Care Provider: Ghazal Moran Discharge Orders/Prescriptions Prescriptions: New oxycodone-acetaminophen [Percocet] 5-325 mg tablet 1 tab PO Q4H PRN (Reason: pain) 7 Days Qty: 20 0RF naproxen 500 mg tablet 500 mg PO BID PRN PRN (Reason: Pain) Qty: 30 1RF No Action Probiotic 3 billion cell capsule 3,000 mmu cells PO DAILY Rx Instructions: administer with a meal PNV-[place] 28-1-300 mg capsule 1 cap PO DAILY Referrals / Follow Up: Ghazal Moran DO [Primary Care Provider] - Disposition Disposition (needs filled in before D/C Order can be placed): Home, Self Care
[2024-11-28 08:19] VITALS: BP 107/76; PULSE 88; RESP 16; TEMP 36.4; O2SAT 98
[2024-11-28] MEDS: Senna/Docusate Sodium 1 Tablet PO (09:25)
[2024-11-28 11:44] VITALS: BP 120/79; PULSE 84; RESP 16; TEMP 36.3; O2SAT 95
[2024-11-28] MEDS: MEASLES,MUMPS,RUBELLA VACC/PF 0.5 ML SC (14:15)
== END 2024-11-28 14:50 | disposition home or self-care (01) | DRG 788 ==
LOC: LAB 09:58 → WP 09:58
PROVIDERS: Advanced Practice Midwife; Admitting Provider Obstetrics & Gynecology; PCP Internal Medicine; Referring Provider Obstetrics & Gynecology; Visit Provider Obstetrics & Gynecology
DX: O76 Abnormality in fetal heart rate and rhythm complicating labor and delivery (principal); Z23 Encounter for immunization; Z37.0 Single live birth; Z3A.40 40 weeks gestation of pregnancy
CPT/HCPCS: 59025; 59050; 85025; 85027; 86780; 86850; 86900; 86901; 99221; A4216; G0378; J2405

== ENCOUNTER → 2025-01-09 | Outpatient (CLI) | payer OTHER, SELFPAY | END | disposition home or self-care (01) | LOC: LABSPEC 16:37 | PROVIDERS: PCP Internal Medicine; Referring Provider Obstetrics & Gynecology; Visit Provider Obstetrics & Gynecology | DX: Z12.4 Encounter for screening for malignant neoplasm of cervix (principal) | CPT/HCPCS: 88175; G0145 ==